=== PATIENT | female | born 1995 | race Caucasian/White ===

== ENCOUNTER → 2020-01-21 17:51 | Outpatient (CLI) | payer OTHER, SELFPAY ==
--- NOTE | 2020-01-21 17:55 | DI.MRI.S_ITS ---
PROCEDURE: MR LUMBAR SPINE WO CON INDICATIONS: LOW BACK PAIN TECHNIQUE: Noncontrast sagittal T1 spin echo and T2 fast echo, sagittal STIR, axial T1 and T2 fast spin echo through the lumbar spine. In cases with scoliosis, additional coronal T2 fast spin echo may be performed. COMPARISON: None. FINDINGS: Image quality: Excellent. Alignment and Curvature: There is normal bony alignment. Bone Marrow: Marrow is of normal overall signal. No acute vertebral body compression fractures. Spinal Cord: Conus medullaris terminates at the top of L2 level. Visualized cord demonstrates normal signal and size. Paraspinous Soft Tissues: No paravertebral masses. T12-L1: No canal stenosis or foraminal stenosis. L1-L2: No canal stenosis or foraminal stenosis. L2-L3: No canal stenosis or foraminal stenosis. L3-L4: No canal stenosis or foraminal stenosis. Mild facet hypertrophy. L4-L5: Mild disc bulge. Facet hypertrophy. Mild canal stenosis. No foraminal stenosis. L5-S1: Mild disc bulge. Facet hypertrophy. No foraminal stenosis. IMPRESSION: 1. Mild disc bulges at L4-L5 and L5-S1. 2. Mild canal stenosis at L4-L5. 3. Multilevel facet arthropathy. Dictated by: Jacob Lopez M.D. on 01/21/2020 at 18:35 Approved by: Jacob Lopez M.D. on 01/21/2020 at 18:40
== END ==
PROVIDERS: Family Provider Family Medicine; PCP Family Medicine; Referring Provider Physical Medicine & Rehabilitation; Visit Provider Physical Medicine & Rehabilitation
DX: M51.26 Other intervertebral disc displacement, lumbar region (principal); M51.27 Other intervertebral disc displacement, lumbosacral region; M48.061 Spinal stenosis, lumbar region without neurogenic claudication; M47.816 Spondylosis without myelopathy or radiculopathy, lumbar region; M47.817 Spondylosis without myelopathy or radiculopathy, lumbosacral region
CPT/HCPCS: 72148

== ENCOUNTER → 2020-08-11 12:15 | Outpatient (CLI) | payer OTHER, SELFPAY ==
[2020-08-11] MEDS: COVID-19 VACC(MODERNA-1)/PF 100 MCG/0.5 ML VIAL IM (12:21)
== END ==
PROVIDERS: Family Provider Family Medicine; PCP Family Medicine; Visit Provider Internal Medicine
DX: Z23 Encounter for immunization (principal)
CPT/HCPCS: 0011A; 91301

== ENCOUNTER → 2020-08-31 08:27 | Outpatient (CLI) | payer OTHER, SELFPAY | PROVIDERS: Family Provider Family Medicine; PCP Nurse Practitioner Family; Referring Provider Nurse Practitioner Family; Visit Provider Nurse Practitioner Family | DX: E03.9 Hypothyroidism, unspecified (principal) | CPT/HCPCS: 36415; 84443 ==

== ENCOUNTER → 2020-09-07 12:02 | Outpatient (CLI) | payer OTHER, SELFPAY ==
[2020-09-07] MEDS: COVID-19 VACC #2, MRNA(MOD) 100 MCG/0.5 ML VIAL IM (12:13)
== END ==
PROVIDERS: Family Provider Family Medicine; PCP Nurse Practitioner Family; Visit Provider Internal Medicine
DX: Z23 Encounter for immunization (principal)
CPT/HCPCS: 0012A; 91301

== ENCOUNTER → 2020-09-08 13:27 | Outpatient (CLI) | payer OTHER, SELFPAY ==
[2020-09-08 16:58] LABS: Free T4, Direct Thyroxine 1.28 ng/dL (0.78-2.19)
[2020-09-08 17:11] LABS: Thyroid Stimulating Hormone 9.45 uIU/mL (0.47-4.68)
[2020-09-09 07:22] LABS: Triiodothyronine T3 Total 66 ng/dL (71-180)
[2020-09-15 06:36] LABS: T4,Free, Direct Dialysis 1.5 ng/dL (.)
== END ==
PROVIDERS: Family Provider Family Medicine; PCP Nurse Practitioner Family; Referring Provider Internal Medicine Endocrinology, Diabetes & Metabolism; Visit Provider Internal Medicine Endocrinology, Diabetes & Metabolism
DX: E03.9 Hypothyroidism, unspecified (principal)
CPT/HCPCS: 36415; 84439; 84443; 84480

== ENCOUNTER → 2020-11-11 17:04 | Outpatient (CLI) | payer OTHER, SELFPAY ==
[2020-11-11 17:39] LABS: Add Manual Diff / Slide Review NO; Basophils Absolute Auto 100 /uL (0-100); Basophils Percent Auto 0.8 % (0-2); Eosinophils Absolute Auto 800 /uL (0-450); Eosinophils Percent Auto 10.2 % (2-4); Hematocrit 41.5 % (36-46); Hemoglobin 13.6 g/dL (12.0-16.0); Lymphocytes Absolute Auto 2100 /uL (1100-4500); Lymphocytes Percent Auto 27.1 % (25-40); Mean Corpuscular HGB Conc 32.7 % (30-36); Mean Corpuscular Hemoglobin 29.5 PG (26-34); Mean Corpuscular Volume 90.2 fL (80-100); Monocytes Absolute Auto 500 /uL (0-900); Monocytes Percent Auto 6.8 % (3-14); Neutrophils Absolute Auto 4200 /uL (1500-7000); Neutrophils Percent Auto 55.1 % (50-75); Platelet Count 229 X10^3/uL (150-400); Red Cell Distribution Width 13.2 % (11.6-14.8); White Blood Cell Count 7.7 X10^3/uL (4.5-11.0)
[2020-11-11 17:45] LABS: Alanine Aminotransferase 11 IU/L (<35); Albumin 4.5 g/dL (3.5-5.0); Albumin Globulin Ratio 1.4 (1.0-2.8); Alkaline Phosphatase 57 U/L (38-126); Aspartate Aminotransferase 22 IU/L (14-36); BUN Creatinine Ratio 25.9 (6-22); Bilirubin Total 0.2 mg/dL (0.2-1.3); Blood Urea Nitrogen 15 mg/dL (7-17); Calcium 9.4 mg/dL (8.4-10.2); Carbon Dioxide 30 mmol/L (22-32); Chloride 104 mmol/L (98-107); Estimated Glomerular Filt Rate > 60.0 mL/min (>60); Globulin 3.2 g/dL (1.7-4.1); Glucose 91 mg/dL (70-100); HEMOLYSIS < 15 (0-50); Potassium 4.5 mmol/L (3.4-5.1); Sodium 140 mmol/L (137-145); Total Protein 7.7 g/dL (6.3-8.2)
[2020-11-11 18:02] LABS: Free T4, Direct Thyroxine 1.45 ng/dL (0.78-2.19)
[2020-11-11 18:16] LABS: Thyroid Stimulating Hormone 3.68 uIU/mL (0.47-4.68)
== END ==
PROVIDERS: Family Provider Family Medicine; PCP Family Medicine; Referring Provider Family Medicine; Visit Provider Family Medicine
DX: E03.9 Hypothyroidism, unspecified (principal); R51.9 Headache, unspecified; R53.83 Other fatigue
CPT/HCPCS: 36415; 80053; 84439; 84443; 85025

== ENCOUNTER → 2020-11-30 15:41 | Outpatient (CLI) | payer OTHER, SELFPAY ==
--- NOTE | 2020-11-30 | DI.US.S_ITS ---
PROCEDURE: US THYROID INDICATIONS: HASIMOTO'S DISEASE TECHNIQUE: Real-time scanning was performed of the thyroid gland, with image documentation. COMPARISON: None. FINDINGS: Right: Thyroid lobe measures 4.0 x 1.0 x 0.8 cm, and is mildly heterogeneous in echotexture. Left: Thyroid lobe measures 4.1 x 0.9 x 0.5 cm, and is mildly heterogeneous in echotexture. Isthmus: 1.4 mm thick. IMPRESSION: Atrophic and mildly heterogeneous thyroid in this patient with history of Malvin's thyroiditis. No focal nodules. Dictated by: Parvez Barnes [facility] Interpreted: Dallas Whittaker MD on 11/30/2020 at 16:41 Approved by: Dallas Whittaker M.D. on 12/02/2020 at 16:36
== END ==
PROVIDERS: Family Provider Family Medicine; PCP Family Medicine; Referring Provider Internal Medicine; Visit Provider Internal Medicine
DX: E06.3 Autoimmune thyroiditis (principal)
CPT/HCPCS: 76536

== ENCOUNTER 2020-12-08 15:49 | Emergency (ER) | payer OTHER, SELFPAY ==
[2020-12-08 16:00] VITALS: BP 103/69; PULSE 88; RESP 14; TEMP 36.3; O2SAT 99; BMI 18.9
[2020-12-08 16:52] LABS: Alanine Aminotransferase 12 IU/L (<35)
[2020-12-08 17:45] LABS: HIV 1 & 2 Ab/Ag 4th Gen Combo NEGATIVE (NEGATIVE); Hep C Virus Ab w/Reflex Quant NEGATIVE s/c (NEGATIVE); Hepatitis B Surface Antigen NEGATIVE s/c (NEGATIVE)
[2020-12-08 18:01] VITALS: BP 112/61; PULSE 85; RESP 16; O2SAT 100
--- NOTE | 2020-12-08 18:36 | ED.GENADULT ---
HPI - General Adult General Chief complaint: Blood/Body fluid exposure Stated complaint: needle stick at work Time Seen by Provider: 12/08/20 17:13 Source: patient Mode of arrival: Ambulatory Limitations: no limitations History of Present Illness HPI narrative: Otherwise healthy 24-year-old woman who works at [employer]. She was do routine blood draws and after drawing blood with a 23 gauge butterfly needle the needle flipped up and scratched her left forearm through her lab coat. There is a 1 mm punctate lesion on the left forearm. The wound was washed immediately. Incident was reported. Ariana kept in sticker with the source patient's name,unfortunately the sticker was misplaced and we are not currently able to identify the source. Related Data Home Medications Medication Instructions Recorded Confirmed levothyroxine 137 mcg tablet 137 mcg PO DAILY 11/11/20 11/11/20 Previous Rx's Medication Instructions Recorded levonorgestrel [Mirena] 52 mg INTRAU X1 #1 ea 11/29/17 Allergies Allergy/AdvReac Type Severity Reaction Status Date / Time No Known Drug Allergies Allergy Verified 12/08/20 16:02 Review of Systems Review of Systems Narrative: No fevers, cough, chills. Patient History Medical History Fatigue Headache Social History Smoking Status: Former smoker Smoking Status: Former smoker alcohol intake frequency: holidays/special occasions only Substance Use Type: does not use Exam Narrative Exam Narrative: General: Alert appropriate in no acute distress Respiratory: Able to speak in full sentences, no obvious respiratory distress Skin: No obvious rashes, warm and dry Neurologic: Grossly intact no obvious asymmetries or abnormalities Psych: appropriate insight and affect, cooperative Extremity: Small nonbleeding punctate lesion medial aspect left forearm very superficial, no surrounding erythema no current bleeding Initial Vital Signs Initial Vital Signs: Vital Signs Temperature 97.3 F L 12/08/20 16:00 Pulse Rate 88 12/08/20 16:00 Respiratory Rate 14 12/08/20 16:00 Blood Pressure 103/69 12/08/20 16:00 Pulse Oximetry 99 12/08/20 16:00 Course Vital Signs Vital signs: Vital Signs - 8 hr 12/08/20 16:00 12/08/20 18:01 Temperature 97.3 F L Pulse Rate 88 85 Respiratory Rate 14 16 Blood Pressure 103/69 112/61 Pulse Oximetry 99 100 Medical Decision Making Medical Records Medical records reviewed: Yes I reviewed the patient's medical records. Lab Data Lab results reviewed: Yes I reviewed the patient's lab results. Labs: Lab Results 12/08/20 12/08/20 12/08/20 Range/Units 16:20 16:20 16:20 ALT 12 (<35) IU/L Hep Bs Antigen Negative (NEGATIVE) s/c Hep Bs Antibody Reactive (.) Hepatitis C Antibody Negative (NEGATIVE) s/c HIV 1&2 Ab/P24 Ag 4thGn Negative (NEGATIVE) MDM Narrative Medical decision making narrative: 24-year-old woman with a percutaneous blood exposure, very low risk with a small needle through a layer a fabric and barely breaking through epithelium. Patient is on labs are unremarkable and she is hepatitis B vaccinated. With the source unknown at this point we are unable to draw confirmatory blood. We did have a long discussion regarding risks. Given the overall low risk population with which she was dealing in the lab today and the minimal exposure, we decided against PEP prophylaxis. [employer] [facility] exposure paperwork is filled out and forwarded to the Occupational Health Department for further follow-up Discharge Plan Departure Patient Disposition: Home Clinical Impression: Exposure to blood-borne pathogen Instructions: DI for Accidental Exposure to Body Fluids Activity Restrictions/Additional Instructions: Please expect follow-up contact from occupational health. Your exposure was very low risk today. Your blood has been drawn. Prescriptions: No Action levonorgestrel [Mirena] 1 EACH intrauterine device 52 mg INTRAU X1 Qty: 1 RF: 0 levothyroxine 137 mcg tablet 137 mcg PO DAILY RF: 0 Referrals: Ifeanyi Garza, [Primary Care Provider] -
[2020-12-09 05:12] LABS: Hepatitis B Surf Ab Qualitativ Reactive (.)
== END 2020-12-08 18:51 | disposition home or self-care (01) ==
PROVIDERS: Emergency Provider Emergency Medicine; Family Provider Family Medicine; PCP Family Medicine
DX: Z77.21 Contact with and (suspected) exposure to potentially hazardous body fluids (principal); Y99.0 Civilian activity done for income or pay
CPT/HCPCS: 36415; 99281; 99283

== ENCOUNTER → 2021-03-06 11:27 | Outpatient (CLI) | payer OTHER, SELFPAY ==
[2021-03-06 11:43] LABS: Hematocrit 42.9 % (36-46); Hemoglobin 14.2 g/dL (12.0-16.0); Mean Corpuscular HGB Conc 33.1 % (30-36); Mean Corpuscular Hemoglobin 29.3 PG (26-34); Mean Corpuscular Volume 88.5 fL (80-100); Platelet Count 266 X10^3/uL (150-400); Red Blood Cell Count 4.85 X10^6/uL (4.0-5.2); Red Cell Distribution Width 13.2 % (11.6-14.8); White Blood Cell Count 7.1 X10^3/uL (4.5-11.0)
[2021-03-06 12:03] LABS: BUN Creatinine Ratio 24.6 (6-22); Blood Urea Nitrogen 15 mg/dL (7-17); Calcium 9.7 mg/dL (8.4-10.2); Carbon Dioxide 24 mmol/L (22-32); Chloride 105 mmol/L (98-107); Estimated Glomerular Filt Rate > 60.0 mL/min (>60); Glucose 92 mg/dL (70-100); HEMOLYSIS 19 (0-50); Potassium 4.1 mmol/L (3.4-5.1); Sodium 138 mmol/L (137-145)
[2021-03-06 12:33] LABS: TSH w/ Reflex to FT4 8.65 uIU/mL (0.47-4.68)
[2021-03-06 13:55] LABS: Free T4, Direct Thyroxine 1.61 ng/dL (0.78-2.19)
[2021-03-06 14:00] LABS: Hypochromasia 1+; Neutrophils Absolute Manual 4118 /uL (3000-5900); Total Cells Counted 100
== END ==
PROVIDERS: Family Provider Family Medicine; PCP Family Medicine; Referring Provider Physician Assistant; Visit Provider Physician Assistant
DX: R63.4 Abnormal weight loss (principal)
CPT/HCPCS: 36415; 80048; 84439; 84443; 85025

== ENCOUNTER → 2021-03-08 12:14 | Outpatient (CLI) | payer OTHER, SELFPAY ==
[2021-03-08 13:58] LABS: Thyroid Stimulating Hormone 4.97 uIU/mL (0.47-4.68)
== END ==
PROVIDERS: Family Provider Family Medicine; PCP Family Medicine; Referring Provider Internal Medicine Endocrinology, Diabetes & Metabolism; Visit Provider Internal Medicine Endocrinology, Diabetes & Metabolism
DX: E03.9 Hypothyroidism, unspecified (principal)
CPT/HCPCS: 36415; 84443

== ENCOUNTER → 2021-05-25 11:48 | Outpatient (CLI) | payer OTHER, SELFPAY ==
[2021-05-25 13:13] LABS: Thyroid Stimulating Hormone 5.79 uIU/mL (0.47-4.68)
[2021-05-26 14:02] LABS: Free T4, Direct Thyroxine 1.77 ng/dL (0.78-2.19)
== END ==
PROVIDERS: Family Provider Family Medicine; PCP Family Medicine; Referring Provider Internal Medicine Endocrinology, Diabetes & Metabolism; Visit Provider Internal Medicine Endocrinology, Diabetes & Metabolism
DX: E03.9 Hypothyroidism, unspecified (principal); Z68.1 Body mass index [BMI] 19.9 or less, adult
CPT/HCPCS: 36415; 84439; 84443

== ENCOUNTER → 2021-06-01 07:55 | Outpatient (CLI) | payer OTHER, SELFPAY | PROVIDERS: Family Provider Family Medicine; PCP Family Medicine; Referring Provider Family Medicine; Visit Provider Internal Medicine | DX: Z23 Encounter for immunization (principal) | CPT/HCPCS: 90471; 90686 ==

== ENCOUNTER → 2021-06-27 19:23 | Outpatient (ROUT) | payer SELFPAY ==
[2021-06-27 19:33] LABS: Add Manual Diff / Slide Review NO; Basophils Absolute Auto 100 /uL (0-100); Eosinophils Absolute Auto 500 /uL (0-450); Eosinophils Percent Auto 5.9 % (2-4); Hematocrit 41.7 % (36-46); Hemoglobin 13.8 g/dL (12.0-16.0); Lymphocytes Absolute Auto 2200 /uL (1100-4500); Mean Corpuscular HGB Conc 33.1 % (30-36); Mean Corpuscular Volume 87.5 fL (80-100); Monocytes Absolute Auto 500 /uL (0-900); Monocytes Percent Auto 5.9 % (3-14); Neutrophils Absolute Auto 5400 /uL (1500-7000); Neutrophils Percent Auto 62.2 % (50-75); Platelet Count 286 X10^3/uL (150-400); Red Blood Cell Count 4.76 X10^6/uL (4.0-5.2); Red Cell Distribution Width 13.2 % (11.6-14.8); White Blood Cell Count 8.6 X10^3/uL (4.5-11.0)
[2021-06-27 20:06] LABS: Alanine Aminotransferase 12 IU/L (<35); Albumin 4.5 g/dL (3.5-5.0); Albumin Globulin Ratio 1.4 (1.0-2.8); Alkaline Phosphatase 55 U/L (38-126); Aspartate Aminotransferase 21 IU/L (14-36); BUN Creatinine Ratio 18.7 (6-22); Bilirubin Total 0.4 mg/dL (0.2-1.3); Blood Urea Nitrogen 14 mg/dL (7-17); Calcium 9.7 mg/dL (8.4-10.2); Carbon Dioxide 32 mmol/L (22-32); Chloride 102 mmol/L (98-107); Cholesterol 165 mg/dL (140-199); Estimated Glomerular Filt Rate > 60.0 mL/min (>60); Globulin 3.2 g/dL (1.7-4.1); Glucose 83 mg/dL (70-100); HDL Cholesterol 58 mg/dL (40-60); HEMOLYSIS < 15 (0-50); LDL Cholesterol Calculated 94 mg/dL (<100); Potassium 4.2 mmol/L (3.4-5.1); Sodium 140 mmol/L (137-145); Total Protein 7.7 g/dL (6.3-8.2); Triglycerides 67 mg/dL (35-150)
== END ==
PROVIDERS: Family Provider Family Medicine; PCP Family Medicine
DX: Z02.1 Encounter for pre-employment examination (principal)
CPT/HCPCS: 36415; 80053; 80061; 85025